=== PATIENT | male | born 1970 | race Two or more races ===

== ENCOUNTER 2020-03-20 10:48 | Emergency (ER) | payer BC, OTHER ==
[~2020-03-20] VITALS: Ht 170.2 cm; Wt 93.0 kg
[2020-03-20 10:50] VITALS: BP 147/82
[2020-03-20] MEDS ORDERED: KETOROLAC TROMETH 60MG/2ML VIAL IM ONE (11:30)
== END 2020-03-20 12:24 | disposition home or self-care (01) ==
LOC: ER 10:48
DX: S16.1XXA Strain of muscle, fascia and tendon at neck level, initial encounter (principal); M50.320 Other cervical disc degeneration, mid-cervical region, unspecified level; V43.52XA Car driver injured in collision with other type car in traffic accident, initial encounter; Y93.89 Activity, other specified; Y92.89 Other specified places as the place of occurrence of the external cause; Y99.8 Other external cause status
CPT/HCPCS: 72040; 96372; 99283; J1885